=== PATIENT | female | born 1965 | race Caucasian/White ===

== ENCOUNTER 2017-09-09 19:28 | Emergency (ER) | payer OTHER ==
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
[2017-09-09 21:23] VITALS: BP 127/86
== END 2017-09-09 20:59 | disposition home or self-care (01) ==
LOC: ER 19:28
DX: S16.1XXA Strain of muscle, fascia and tendon at neck level, initial encounter (principal); R19.8 Other specified symptoms and signs involving the digestive system and abdomen; V43.52XA Car driver injured in collision with other type car in traffic accident, initial encounter; Y92.411 Interstate highway as the place of occurrence of the external cause; J45.909 Unspecified asthma, uncomplicated; F17.200 Nicotine dependence, unspecified, uncomplicated
CPT/HCPCS: 99283